=== PATIENT | female | born 1950 | race American Indian/Alaskan Native ===

== ENCOUNTER 2016-12-17 12:51 | Inpatient (IN) | payer OTHER ==
[2016-12-17 13:45] LABS: Eosinophils % (Auto) 5.5 % (0.0-4.3); Hematocrit 41.7 % (30.3-42.9); Hemoglobin 14.4 gm/dl (10.1-14.3); Mean Corpuscular HGB Conc 35 % (30-34); Mean Corpuscular Hemoglobin 31 pg (28-32); Mean Corpuscular Volume 90 fl (79-97); Platelet Count 208 K/mm3 (140-440); Red Blood Count 4.63 M/mm3 (3.65-5.03); Red Cell Distribution Width 15.3 % (13.2-15.2); White Blood Count 5.7 K/mm3 (4.5-11.0)
[2016-12-17 13:59] LABS: Anion Gap 14 mmol/L; BUN/Creatinine Ratio 11; Blood Urea Nitrogen 8 mg/dL (7-17); Calcium 9.4 mg/dL (8.4-10.2); Carbon Dioxide 29 mmol/L (22-30); Chloride 101.8 mmol/L (98-107); Glucose 130 mg/dL (65-100); Potassium 4.1 mmol/L (3.6-5.0); Sodium 141 mmol/L (137-145)
[2016-12-17] MEDS ORDERED: ZOFRAN IV ONE (15:20)
[2016-12-17] MEDS ORDERED: NITRO-BID 2% TP ONE (15:20)
[2016-12-17] MEDS ORDERED: MORPHINE IV ONE (15:20)
[2016-12-17] MEDS ORDERED: ASPIRIN PO ONE (15:20)
--- NOTE | 2016-12-17 15:25 | Emergency Department Report ---
HPI - General Chief Complaint: Chest Pain Time Seen by Provider: 12/17/16 15:02 - [facility] HPI: Room 6 The patient is a 66-year-old female presenting with a chief complaint of chest pain. The patient states her pain began this morning with substernal chest pain described as "sticking" and pressure-like in nature. Patient states the pain is associated with dizziness and shortness of breath. Patient denies nausea/vomiting or diaphoresis. Patient currently gives her chest pain score of 1/10. The patient [place] from [place] the [place] and had a 10 hour flight in September. The patient states her last stress test was last year and was normal. The patient states she's never had a cardiac catheterization Location: Substernal chest Duration: Constant 1 day Quality: Sticking, pressure Severity: 02/27 Modifying factors: [see above] Context: [see above] Mode of transportation: [not driving] ED Past Medical Hx - Past Medical History Hx Hypertension: Yes Additional medical history: high cholesterol - Surgical History Additional Surgical History: hysterectomy - Family History Family history: no significant - Social History Smoking Status: Former Smoker (none 16 years) Substance Use Type: None (denies illicit drug use) - Medications Home Medications: Home Medications Medication Instructions Recorded Confirmed Last Taken Type Hydrochlorothiazide [Hctz] 12.5 mg PO QDAY 12/17/16 12/17/16 Unknown History Olmesartan Medoxomil 10 mg PO DAILY 12/17/16 12/17/16 Unknown History Rosuvastatin (Nf) [Crestor] 20 mg PO QHS 12/17/16 12/17/16 Unknown History ED Review of Systems ROS: Stated complaint: DIZZY/CHEST PAIN Other details as noted in HPI Comment: All other systems reviewed and negative Constitutional: denies: chills, diaphoresis, fever Eyes: denies: eye pain, eye discharge, vision change ENT: denies: ear pain, throat pain Respiratory: shortness of breath Cardiovascular: chest pain Endocrine: no symptoms reported Gastrointestinal: denies: abdominal pain, nausea, diarrhea Genitourinary: denies: urgency, dysuria, discharge Musculoskeletal: denies: back pain, joint swelling, arthralgia Skin: denies: rash, lesions Neurological: denies: headache, weakness, paresthesias Psychiatric: denies: anxiety, depression Hematological/Lymphatic: denies: easy bleeding, easy bruising Physical Exam - Physical Exam Vital Signs: Vital Signs 12/17/16 12/17/16 13:18 14:45 Temperature 98.7 F 98.5 F Pulse Rate 74 64 Respiratory 16 14 Rate Blood Pressure 163/94 Blood Pressure 138/84 [Left] O2 Sat by Pulse 97 Oximetry Physical Exam: GENERAL: The patient is well-developed well-nourished female lying on stretcher not appearing to be in acute distress. [] HEENT: Normocephalic. Atraumatic. Extraocular motions are intact. Patient has moist mucous membranes. NECK: Supple. Trachea midline CHEST/LUNGS: Clear to auscultation. There is no respiratory distress noted. HEART/CARDIOVASCULAR: Regular. There is no tachycardia. There is no gallop rub or murmur. ABDOMEN: Abdomen is soft, nontender. Patient has normal bowel sounds. There is no abdominal distention. SKIN: There is no rash. There is no edema. There is no diaphoresis. NEURO: The patient is awake, alert, and oriented. The patient is cooperative. The patient has normal speech MUSCULOSKELETAL: There is no evidence of acute injury. ED Course Vital Signs 12/17/16 12/17/16 13:18 14:45 Temperature 98.7 F 98.5 F Pulse Rate 74 64 Respiratory 16 14 Rate Blood Pressure 163/94 Blood Pressure 138/84 [Left] O2 Sat by Pulse 97 Oximetry ED Medical Decision Making - Lab Data Result diagrams: 12/17/16 13:33 12/17/16 13:33 Laboratory Tests 12/17/16 12/17/16 13:33 13:33 WBC 5.7 RBC 4.63 Hgb 14.4 H Hct 41.7 MCV 90 MCH 31 MCHC 35 H RDW 15.3 H Plt Count 208 Lymph % (Auto) 34.6 [place] % (Auto) 7.5 H Eos % (Auto) 5.5 H Baso % (Auto) 1.0 Lymph # 2.0 [place] # 0.4 Eos # 0.3 Baso # 0.1 Seg Neutrophils % 51.4 Seg Neutrophils # 2.9 Sodium 141 Potassium 4.1 Chloride 101.8 Carbon Dioxide 29 Anion Gap 14 BUN 8 Creatinine 0.7 Estimated GFR > 60 BUN/Creatinine Ratio 11 Glucose 130 H Calcium 9.4 Troponin T < 0.010 - EKG Data -: EKG Interpreted by Me EKG shows normal: sinus rhythm Rate: normal - EKG Data When compared to previous EKG there are: previous EKG unavailable Interpretation: nonspecific ST-T wave alexy (T-wave Inversion lead V2) - Radiology Data Radiology results: pending (CT chest) - Differential Diagnosis ACS, PE, pericarditis, GERD, pneumonia Critical care attestation.: If time is entered above; I have spent that time in minutes in the direct care of this critically ill patient, excluding procedure time. ED Disposition Clinical Impression: Chest pain Disposition: DC-09 OP ADMIT IP TO THIS HOSP Is pt being admited?: Yes Does the pt Need Aspirin: Yes Condition: Fair Instructions: Chest Pain (ED) Time of Disposition: 17:46 (Hospitalist notified. CT Chest reults pending)
[2016-12-17] MEDS ORDERED: MORPHINE ONE (15:33)
[2016-12-17] MEDS ORDERED: SODIUM CHLORIDE FLUSH SYRINGE 10 ML IV PRN (17:50)
[2016-12-17] MEDS ORDERED: TYLENOL PO PRN (17:50)
[2016-12-17] MEDS ORDERED: PROVENTIL IH PRN (17:50)
[2016-12-17] MEDS ORDERED: ZOFRAN IV PRN (17:50)
[2016-12-17] MEDS ORDERED: NITROSTAT SL PRN (17:50)
[2016-12-17] MEDS ORDERED: DULCOLAX PR PRN (17:50)
[2016-12-17] MEDS ORDERED: MORPHINE IV PRN (17:50)
[2016-12-17] MEDS ORDERED: APRESOLINE IV PRN (17:58)
--- NOTE | 2016-12-17 18:30 | Cat Scan Report ---
FINAL REPORT PROCEDURE: CT angiogram chest with contrast. TECHNIQUE: Computerized tomographic angiography of the chest was performed after the IV injection of iodinated nonionic contrast including image processing. The image data was postprocessed using 2-dimensional multiplanar reformatted (MPR) and 3-dimensional (MIP and/or volume rendered) techniques. HISTORY: Chest pain, shortness of breath, dizziness. COMPARISON: No prior studies are available for comparison. FINDINGS: The trachea and central bronchi appear normal. There is a tiny ovoid nodule in the anterolateral portion of the right upper lobe. This measures 5.8 millimeters x 2.9 millimeters in cross-section. It is not highly suspicious. It is an indeterminate nodule. Follow-up imaging is suggested. The lungs are otherwise clear. There are no pleural effusions. The thoracic skeleton has a normal caliber without evidence of dissection. The pulmonary arteries enhance normally. There are no filling defects identified to indicate pulmonary embolism. There is no mediastinal adenopathy. Heart size is normal. There are no pleural effusions. The adrenal glands are not enlarged. The regional skeleton appears intact. There may be a low density mass in the left kidney which is incompletely imaged. IMPRESSION: No evidence of pulmonary embolism. Tiny right upper lobe nodule. Possible left renal mass which is incompletely imaged.
--- NOTE | 2016-12-17 18:35 | History and Physical Report ---
History of Present Illness Chief complaint: My chest was hurting and i got scared History of present illness: 66 YO Female with Obesity, HTN, HLD presents to ED for evaluation. Pt states that she experienced pain in her chest that began this morning after awaking from sleep. Pain 2as 6/10, substernal, sharp, nonradiating, localized to the left chest, associated with shortness of breath, worse with exertion, relieved with rest. Pain was relieved with nitro. Pt denies fever, chills, palpitations, trauma, productive cough, hemoptysis, BRBPR, recent prolonged travel/immobility , leg swelling, calf pain, individual/family history of DVT/PE, unintentional weight loss/night sweats, or recent ill contacts. Pt seen and evaluated in ED and found to have stable angina, and accelerated hypertension. Past History Past Medical History: hypertension, hyperlipidemia, other (Obesity) Past Surgical History: hysterectomy Social history: single. denies: smoking, alcohol abuse, prescription drug abuse Family history: hypertension Medications and Allergies Allergies Allergy/AdvReac Type Severity Reaction Status Date / Time No Known Allergies Allergy Unverified 12/17/16 13:17 Home Medications Medication Instructions Recorded Confirmed Last Taken Type Hydrochlorothiazide [Hctz] 12.5 mg PO QDAY 12/17/16 12/17/16 Unknown History Olmesartan Medoxomil 10 mg PO DAILY 12/17/16 12/17/16 Unknown History Rosuvastatin (Nf) [Crestor] 20 mg PO QHS 12/17/16 12/17/16 Unknown History Active Meds: Active Medications Acetaminophen (Tylenol) 650 mg PO Q4H PRN PRN Reason: Pain MILD(1-3)/Fever >100.5/PAT Albuterol (Proventil) 2.5 mg IH Q4HRT PRN PRN Reason: Shortness Of Breath Aspirin (Ecotrin) 325 mg PO QDAY [facility] Atorvastatin Calcium (Lipitor) 20 mg PO QHS [facility] Bisacodyl (Dulcolax) 10 mg [place] QDAY PRN PRN Reason: Constipation unrelieved by MOM Famotidine (Pepcid) 10 mg PO BID [facility] Hydralazine HCl (Apresoline) 10 mg IV Q8H PRN PRN Reason: Hypertension Hydrochlorothiazide (Hctz) 12.5 mg PO QDAY [facility] Losartan Potassium (Cozaar) 25 mg PO QDAY [facility] Magnesium Hydroxide (Milk Of Magnesia) 30 ml PO Q4H PRN PRN Reason: Constipation Morphine Sulfate (Morphine) 2 mg IV Q4H PRN PRN Reason: Pain, Moderate (4-6) Nitroglycerin (Nitrostat) 0.4 mg SL Q5M PRN PRN Reason: Chest Pain Ondansetron HCl (Zofran) 4 mg IV Q8H PRN PRN Reason: N/V unrelieved by Reglan Sodium Chloride (Sodium Chloride Flush Syringe 10 Ml) 10 ml IV PRN PRN PRN Reason: LINE FLUSH Review of Systems Constitutional: no weight loss, no weight gain, no fever, no chills, no sweats Ears, nose, mouth and throat: no ear pain, no ear discharge, no tinnitis, no decreased hearing, no nose pain, no nasal congestion, no nasal discharge, no sinus pressure Breasts: no change in shape, no swelling, no mass Cardiovascular: chest pain, shortness of breath, no orthopnea, no palpitations, no rapid/irregular heart beat, no edema Respiratory: shortness of breath, no cough, no cough with sputum, no excessive sputum, no hemoptysis Gastrointestinal: no abdominal pain, no nausea, no vomiting, no diarrhea, no constipation Genitourinary Female: no pelvic pain, no flank pain, no menorrhagia Rectal: no pain, no incontinence, no bleeding Musculoskeletal: no neck stiffness, no neck pain, no shooting arm pain, no arm numbness/tingling, no low back pain, no shooting leg pain Integumentary: no rash, no pruritis, no redness, no sores, no wounds Neurological: no transient paralysis, no paralysis, no weakness, no parathesias , no numbness, no tingling, no seizures Psychiatric: no anxiety, no memory loss, no sleep disturbances, no insomnia, no hypersomnia, no change in appetite Endocrine: no cold intolerance, no heat intolerance, no polyphagia, no excessive thirst, no polydipsia, no polyuria, no nocturia Hematologic/Lymphatic: no easy bruising, no easy bleeding Allergic/Immunologic: no urticaria, no allergic rhinitis, no wheezing Exam - Constitutional Vitals: Temp Pulse Resp BP Pulse Ox 98.5 F 72 18 150/108 97 12/17/16 14:45 12/17/16 15:50 12/17/16 16:05 12/17/16 15:50 12/17/16 13:18 General appearance: Present: mild distress, obese - EENT Eyes: Present: PERRL ENT: hearing intact, clear oral mucosa - Neck Neck: Present: supple, normal ROM - Respiratory Respiratory effort: normal Respiratory: bilateral: CTA - Cardiovascular Heart Sounds: Present: S1 & S2. Absent: rub, click - Extremities Extremities: pulses symmetrical, No edema Peripheral Pulses: within normal limits - Abdominal General gastrointestinal: Present: soft, non-tender, non-distended, normal bowel sounds Female genitourinary: Present: normal - Integumentary Integumentary: Present: clear, warm, dry - Musculoskeletal Musculoskeletal: gait normal, strength equal bilaterally - Psychiatric Psychiatric: agitated - Neurologic Neurologic: CNII-XII intact, moves all extremities Results - Labs CBC & Chem 7: 12/17/16 13:33 12/17/16 13:33 Labs: Abnormal lab results 12/17/16 12/17/16 Range/Units 13:33 13:33 Hgb 14.4 H (10.1-14.3) gm/dl MCHC 35 H (30-34) % RDW 15.3 H (13.2-15.2) % [place] % (Auto) 7.5 H (0.0-7.3) % Eos % (Auto) 5.5 H (0.0-4.3) % Glucose 130 H (65-100) mg/dL Assessment and Plan - Patient Problems (1) ACS (acute coronary syndrome) Current Visit: Yes Status: Suspected Plan to address problem: Suspected ACS: Serial cardiac enzymes, EKG, telemetry, Echo, supportive care, stress test, Morphine, Supplemental oxygen, Aspirin, nitro tabs, Cardiology consulted, lipid panel, dietary counseling. (2) Accelerated hypertension Current Visit: Yes Status: Acute Plan to address problem: Monitor bp q shift, IV hydralazine prn, continue medical management. (3) HLD (hyperlipidemia) Current Visit: Yes Status: Acute Qualifiers: Hyperlipidemia type: H Plan to address problem: Lipid panel, statin therapy (4) Obesity Current Visit: Yes Status: Acute Qualifiers: Obesity type: O Obesity classification: O Serious obesity comorbidity presence: S Body mass index: BMI 32.0-32.9 Plan to address problem: Pt counseled, increased physical activity at discharge. (5) DVT prophylaxis Current Visit: Yes Status: Acute
[2016-12-17] MEDS ORDERED: NON-FORMULARY (Rosuvastatin (Nf) 20 MG) PO SCH (22:00)
[2016-12-17] MEDS: PEPCID PO SCH (22:03)
[2016-12-18] MEDS ORDERED: LEXISCAN IV ONE ×2 (08:36→08:37)
[2016-12-18] MEDS ORDERED: OLMESARTAN MEDOXOMIL 10 MG PO SCH (10:00)
--- NOTE | 2016-12-18 11:21 | Progress Note ---
Assessment and Plan Assessment and plan: (1) ACS (acute coronary syndrome) Suspected ACS: Serial cardiac enzymes, EKG, telemetry, Echo, supportive care, stress test, Morphine, Supplemental oxygen, Aspirin, nitro tabs prn, Cardiology consulted, lipid panel, dietary counseling. (2) Accelerated hypertension Monitor bp q shift, IV hydralazine prn, continue medical management. (3) HLD (hyperlipidemia) F/u Lipid panel, statin therapy (4) Obesity Pt counseled, increased physical activity at discharge. (5) DVT prophylaxis Lovenox daily History Interval history: no new issues overnight Hospitalist Physical - Constitutional Vitals: Temp Pulse Resp BP Pulse Ox 98.8 F 87 18 147/82 97 12/18/16 08:42 12/18/16 09:09 12/18/16 08:42 12/18/16 09:09 12/18/16 08:42 General appearance: Present: mild distress, obese - EENT Eyes: Present: PERRL, EOM intact ENT: hearing intact, clear oral mucosa, dentition normal - Neck Neck: Present: supple, normal ROM - Respiratory Respiratory effort: normal Respiratory: bilateral: CTA - Cardiovascular Rhythm: regular Heart Sounds: Present: S1 & S2. Absent: gallop, rub - Extremities Extremities: no ischemia, No edema, Full ROM - Abdominal General gastrointestinal: soft, non-tender, non-distended, normal bowel sounds - Integumentary Integumentary: Present: clear, warm, dry - Neurologic Neurologic: CNII-XII intact, moves all extremities Results - Labs CBC & Chem 7: 12/17/16 13:33 12/17/16 13:33 Labs: Laboratory Last Values WBC 5.7 K/mm3 (4.5-11.0) 12/17/16 13:33 RBC 4.63 M/mm3 (3.65-5.03) 12/17/16 13:33 Hgb 14.4 gm/dl (10.1-14.3) H 12/17/16 13:33 Hct 41.7 % (30.3-42.9) 12/17/16 13:33 MCV 90 fl (79-97) 12/17/16 13:33 MCH 31 pg (28-32) 12/17/16 13:33 MCHC 35 % (30-34) H 12/17/16 13:33 RDW 15.3 % (13.2-15.2) H 12/17/16 13:33 Plt Count 208 K/mm3 (140-440) 12/17/16 13:33 Lymph % (Auto) 34.6 % (13.4-35.0) 12/17/16 13:33 [place] % (Auto) 7.5 % (0.0-7.3) H 12/17/16 13:33 Eos % (Auto) 5.5 % (0.0-4.3) H 12/17/16 13:33 Baso % (Auto) 1.0 % (0.0-1.8) 12/17/16 13:33 Lymph # 2.0 K/mm3 (1.2-5.4) 12/17/16 13:33 [place] # 0.4 K/mm3 (0.0-0.8) 12/17/16 13:33 Eos # 0.3 K/mm3 (0.0-0.4) 12/17/16 13:33 Baso # 0.1 K/mm3 (0.0-0.1) 12/17/16 13:33 Seg Neutrophils % 51.4 % (40.0-70.0) 12/17/16 13:33 Seg Neutrophils # 2.9 K/mm3 (1.8-7.7) 12/17/16 13:33 Sodium 141 mmol/L (137-145) 12/17/16 13:33 Potassium 4.1 mmol/L (3.6-5.0) 12/17/16 13:33 Chloride 101.8 mmol/L (98-107) 12/17/16 13:33 Carbon Dioxide 29 mmol/L (22-30) 12/17/16 13:33 Anion Gap 14 mmol/L 12/17/16 13:33 BUN 8 mg/dL (7-17) 12/17/16 13:33 Creatinine 0.7 mg/dL (0.7-1.2) 12/17/16 13:33 Estimated GFR > 60 ml/min 12/17/16 13:33 BUN/Creatinine Ratio 11 % 12/17/16 13:33 Glucose 130 mg/dL (65-100) H 12/17/16 13:33 Hemoglobin A1c 5.7 % (4-6) 12/17/16 13:33 Calcium 9.4 mg/dL (8.4-10.2) 12/17/16 13:33 Troponin T < 0.010 ng/mL (0.00-0.029) 12/18/16 00:01 Triglycerides 87 mg/dL (2-149) 12/17/16 13:33 Cholesterol 134 mg/dL (50-199) 12/17/16 13:33 LDL Cholesterol Direct 55 mg/dL (50-130) 12/17/16 13:33 HDL Cholesterol 62 mg/dL (40-59) H 12/17/16 13:33 Cholesterol/HDL Ratio 2.16 % 12/17/16 13:33
--- NOTE | 2016-12-18 11:29 | Consultation ---
History of Present Illness Consult date: 12/18/16 Requesting physician: YOLY BONILLA Consult reason: other ("ACS") History of present illness: The pt is a 66 YO female with a past medical history significant for HTN, HLP, obesity, GERD. She is previously unknown to our practice. She presented with c/ o intermittent chest pain for the past 4-5 months. She describes the pain as an intermittent, nonradiating epigastric pain which is aggravated by activity and alleviated by rest. The pain lasts for ~10 minutes per episode. There is SOB associated with the pain. Pt currently alternates her residence between [place] and the . She states she was treated for GERD last year in [place]. She denies any palpitations, n/v, diaphoresis, dizziness or syncope. Pt underwent lexiscan MPI this AM which showed small reversible apical defect, EF 77%. Past History Past Medical History: hypertension, hyperlipidemia, other (Obesity) Past Surgical History: hysterectomy Social history: single. denies: smoking, alcohol abuse, prescription drug abuse Family history: hypertension Medications and Allergies Allergies Allergy/AdvReac Type Severity Reaction Status Date / Time No Known Allergies Allergy Unverified 12/17/16 13:17 Home Medications Medication Instructions Recorded Confirmed Last Taken Type Hydrochlorothiazide [Hctz] 12.5 mg PO QDAY 12/17/16 12/17/16 Unknown History Olmesartan Medoxomil 10 mg PO DAILY 12/17/16 12/17/16 Unknown History Rosuvastatin (Nf) [Crestor] 20 mg PO QHS 12/17/16 12/17/16 Unknown History Active Meds: Active Medications Acetaminophen (Tylenol) 650 mg PO Q4H PRN PRN Reason: Pain MILD(1-3)/Fever >100.5/PAT Last Admin: 12/17/16 23:22 Dose: 650 mg Albuterol (Proventil) 2.5 mg IH Q4HRT PRN PRN Reason: Shortness Of Breath Aspirin (Ecotrin) 325 mg PO QDAY [facility] Atorvastatin Calcium (Lipitor) 20 mg PO QHS [facility] Last Admin: 12/17/16 22:03 Dose: 20 mg Bisacodyl (Dulcolax) 10 mg [place] QDAY PRN PRN Reason: Constipation unrelieved by MOM Enoxaparin Sodium (Lovenox) 40 mg SUB-Q QDAY@2200 [facility] Famotidine (Pepcid) 10 mg PO BID [facility] Last Admin: 12/17/16 22:03 Dose: 10 mg Hydralazine HCl (Apresoline) 10 mg IV Q8H PRN PRN Reason: Hypertension Hydrochlorothiazide (Hctz) 12.5 mg PO QDAY [facility] Losartan Potassium (Cozaar) 25 mg PO QDAY [facility] Magnesium Hydroxide (Milk Of Magnesia) 30 ml PO Q4H PRN PRN Reason: Constipation Morphine Sulfate (Morphine) 2 mg IV Q4H PRN PRN Reason: Pain, Moderate (4-6) Nitroglycerin (Nitrostat) 0.4 mg SL Q5M PRN PRN Reason: Chest Pain Ondansetron HCl (Zofran) 4 mg IV Q8H PRN PRN Reason: N/V unrelieved by Reglan Sodium Chloride (Sodium Chloride Flush Syringe 10 Ml) 10 ml IV PRN PRN PRN Reason: LINE FLUSH Review of Systems Constitutional: no weight loss, no weight gain, no fever, no chills, no sweats Ears, nose, mouth and throat: no ear pain, no nose pain, no sinus pressure, no sinus pain Cardiovascular: chest pain, shortness of breath, dyspnea on exertion, no orthopnea, no palpitations, no rapid/irregular heart beat, no edema, no syncope , no lightheadedness, no leg edema Respiratory: shortness of breath, dyspnea on exertion, no cough, no congestion, no wheezing, no pain on inspiration Gastrointestinal: abdominal pain (epigastric), no nausea, no vomiting, no diarrhea, no constipation, no change in bowel habits Genitourinary Female: no pelvic pain, no flank pain, no dysuria, no urinary frequency, no urgency Musculoskeletal: no neck stiffness, no neck pain, no shooting arm pain, no arm numbness/tingling, no low back pain, no shooting leg pain, no leg numbness/ tingling, no redness of joints Integumentary: no rash, no pruritis, no redness, no sores, no wounds Neurological: no head injury, no paralysis, no weakness, no parathesias, no numbness, no tingling, no seizures, no syncope Endocrine: no cold intolerance, no heat intolerance Hematologic/Lymphatic: no easy bruising, no easy bleeding Allergic/Immunologic: no urticaria Physical Examination Vital Signs Temp Pulse Resp BP Pulse Ox 98.7 F 74 16 163/94 97 12/17/16 13:18 12/17/16 13:18 12/17/16 13:18 12/17/16 13:18 12/17/16 13:18 General appearance: no acute distress HEENT: Positive: PERRL, Normocephaly, Mucus Membranes Moist Neck: Positive: neck supple, trachea midline Cardiac: Positive: Reg Rate and Rhythm, S1/S2 Lungs: Positive: Normal Exam, clear to auscultation, Normal Breath Sounds Neuro: Positive: Grossly Intact, Cranial Nerve 2-12 Intact Abdomen: Positive: Unremarkable, Soft, Active Bowel Sounds. Negative: Tender Skin: Positive: Clear. Negative: Rash, Wound Musculoskeletal: No Fluid Collection, No Pain, Normal Range of Motion Extremities: Absent: edema Results 12/17/16 13:33 12/17/16 13:33 - Imaging and Cardiology EKG: report reviewed, image reviewed EKG interpretations - Telemetry EKG Rhythm: Sinus Rhythm - EKG Sinus rhythms and dysrhythmias: sinus rhythm Assessment and Plan Assessment: Chest pain, atypical - ECG with NAF; Mary negative for AMI Abnormal stress test - small reversible apical defect, EF 77%. HTN HLP Obesity GERD Plan: Coronary angiography recommended for definitive diagnosis in setting of abnormal stress test. Indications, potential risks and benefits of LHC reviewed with pt. Pt declines LHC at this time and wishes to return to [place] for further eval/management. Initiate lopressor 12.5mg PO BID. Cont all other present cardiac regimen. Pt may discharge home from cardiology standpoint. Recommend that she follow up with a laundry housekeeper of her choice within 1 week of hospital discharge. The patient has been seen in conjunction with Dr. Cates who agrees with the assessment and plan of care.
[2016-12-18] MEDS ORDERED: NACL 0.9% 500 ML 500 ML IV SCH (12:00)
[2016-12-18] MEDS: ECOTRIN PO SCH (12:05)
[2016-12-18] MEDS: COZAAR PO SCH (12:05)
[2016-12-18] MEDS: PEPCID PO SCH ×2 (12:05→21:27)
[2016-12-18] MEDS: HCTZ PO SCH (12:06)
[2016-12-18] MEDS: LOPRESSOR PO SCH (21:27)
[2016-12-18] MEDS ORDERED: LOVENOX SUB-Q SCH (22:00)
[2016-12-19 05:34] LABS: Basophils % (Auto) 0.9 % (0.0-1.8); Eosinophils % (Auto) 11.8 % (0.0-4.3); Hematocrit 39.2 % (30.3-42.9); Hemoglobin 13.6 gm/dl (10.1-14.3); Mean Corpuscular HGB Conc 35 % (30-34); Mean Corpuscular Hemoglobin 31 pg (28-32); Mean Corpuscular Volume 90 fl (79-97); Platelet Count 192 K/mm3 (140-440); Red Blood Count 4.36 M/mm3 (3.65-5.03); Red Cell Distribution Width 15.3 % (13.2-15.2); White Blood Count 5.6 K/mm3 (4.5-11.0)
[2016-12-19 05:50] LABS: Anion Gap 16 mmol/L; BUN/Creatinine Ratio 13; Blood Urea Nitrogen 8 mg/dL (7-17); Carbon Dioxide 30 mmol/L (22-30); Chloride 101.8 mmol/L (98-107); Glucose 91 mg/dL (65-100); Potassium 3.7 mmol/L (3.6-5.0); Sodium 144 mmol/L (137-145)
[2016-12-19] MEDS: MILK OF MAGNESIA PO PRN ×2 (06:09→10:20)
--- NOTE | 2016-12-19 08:29 | Discharge Summary ---
Providers - Providers Date of Admission: 12/17/16 17:50 Date of discharge: 12/19/16 Attending physician: DEMETRIO SERNA Primary care physician: TECH[employer] SAL[employer] REPRESENTATIVE Hospitalization Reason for admission: cp Condition: Fair Hospital course: The pt is a 66 YO female with a past medical history significant for HTN, HLP, obesity, GERD who presented with c/o intermittent chest pain for the past 4-5 months. She described the pain as an intermittent, nonradiating epigastric pain which is aggravated by activity and alleviated by rest. The pain lasts for ~10 minutes per episode. There is SOB associated with the pain. Pt currently alternates her residence between [place] and the . She states she was treated for GERD last year in [place]. She denies any palpitations, n/v, diaphoresis, dizziness or syncope. Pt underwent lexiscan MPI during this hospitalization which showed small reversible apical defect, EF 77%. The patient was scheduled for cardiac catheterization. Coronary angiography recommended for definitive diagnosis in setting of abnormal stress test. Indications, potential risks and benefits of LHC reviewed with pt. Pt declines LHC at this time and wishes to return to [place] for further eval/management. The patient was noted to have an elevated d-dimer and CTA of the chest was obtained and found to be negative. Cardiology recommended Lopressor 12.5 mg by mouth twice a day Disposition: DC-01 TO HOME OR SELFCARE Time spent for discharge: 32 - Discharge Diagnoses (1) GERD (gastroesophageal reflux disease) Status: Acute Qualifiers: Esophagitis presence: E (2) Abnormal stress test Status: Acute (3) Accelerated hypertension Status: Acute (4) Chest pain Status: Acute Qualifiers: Chest pain type: C Ischemic chest pain type: I (5) HLD (hyperlipidemia) Status: Acute Qualifiers: Hyperlipidemia type: H Core Measure Documentation - Palliative Care Palliative Care/ Comfort Measures: Not Applicable - Core Measures Any of the following diagnoses?: none Exam - Constitutional Vitals: Temp Pulse Resp BP Pulse Ox 98.7 F 64 20 108/68 91 12/18/16 23:19 12/19/16 02:34 12/18/16 23:19 12/18/16 23:19 12/18/16 23:19 General appearance: Present: no acute distress, well-nourished - EENT Eyes: Present: PERRL ENT: hearing intact, clear oral mucosa - Neck Neck: Present: supple, normal ROM - Respiratory Respiratory effort: normal Respiratory: bilateral: CTA - Cardiovascular Heart Sounds: Present: S1 & S2. Absent: rub, click - Extremities Extremities: pulses symmetrical, No edema Peripheral Pulses: within normal limits - Abdominal General gastrointestinal: Present: soft, non-tender, non-distended, normal bowel sounds Female genitourinary: Present: normal - Integumentary Integumentary: Present: clear, warm, dry - Musculoskeletal Musculoskeletal: gait normal, strength equal bilaterally - Psychiatric Psychiatric: appropriate mood/affect, intact judgment & insight - Neurologic Neurologic: CNII-XII intact, moves all extremities Plan Activity: no restrictions Weight Bearing Status: Full Weight Bearing Diet: low fat, low cholesterol, low salt Follow up with: PRIMARY CAREMD [Primary Care Provider] - 7 Days TOM GRANADO MD [Staff Physician] - 7 Days Prescriptions: Aspirin EC [Aspirin Enteric Coated TAB] 325 mg PO QDAY #30 tablet AtorvaSTATin [Lipitor] 20 mg PO QHS #30 tablet Famotidine [Pepcid] 10 mg PO BID #60 tablet Metoprolol [Lopressor TAB] 12.5 mg PO BID #60 tablet Nitroglycerin [Nitrostat] 0.4 mg SL Q5M PRN #30 tablet PRN Reason: Chest Pain
[2016-12-19 09:04] VITALS: BP 103/68
[2016-12-19] MEDS: PEPCID PO SCH (10:19)
[2016-12-19] MEDS: ECOTRIN PO SCH (10:19)
[2016-12-19] MEDS: COZAAR PO SCH (10:21)
[2016-12-19] MEDS: LOPRESSOR PO SCH (10:22)
[2016-12-19] MEDS: HCTZ PO SCH (10:22)
== END 2016-12-19 13:15 | disposition home or self-care (01) | DRG 313 ==
LOC: ED 12:51 → 4A 17:50
PROVIDERS: ADMIT Internal Medicine; ATTEND Hospitalist
DX: R07.9 Chest pain, unspecified (principal); E78.5 Hyperlipidemia, unspecified; E66.9 Obesity, unspecified; I10 Essential (primary) hypertension; K21.9 Gastro-esophageal reflux disease without esophagitis; R94.39 Abnormal result of other cardiovascular function study; Z53.29 Procedure and treatment not carried out because of patient's decision for other reasons; Z90.710 Acquired absence of both cervix and uterus; Z68.32 Body mass index [BMI] 32.0-32.9, adult; Z71.3 Dietary counseling and surveillance
CPT/HCPCS: 36415; 71275; 78452; 80048; 80061; 83036; 84484; 85025; 85379; 85610; 93005; 93010; 93017; 93306; 96374; 96375; A9270-GY; A9502; J1650; J2270; J2405; J2785; J7040; Q9967